=== PATIENT | female | born 1955 | race Caucasian/White ===

== ENCOUNTER → 2021-03-24 | Outpatient (CLI) | payer OTHER | LOC: RAD 16:41 | DX: M19.049 Primary osteoarthritis, unspecified hand (principal); M25.50 Pain in unspecified joint; M21.612 Bunion of left foot; M21.611 Bunion of right foot; M19.042 Primary osteoarthritis, left hand; M19.041 Primary osteoarthritis, right hand | CPT/HCPCS: 73130; 73630 ==